=== PATIENT | female | born 1965 | race Caucasian/White ===

== ENCOUNTER 2017-06-30 17:38 | Inpatient (IN) | payer OTHER ==
[~2017-06-30] VITALS: Ht 157.5 cm; Wt 67.6 kg
[~2017-06-30 17:38] MED LIST: ATI1 PO; CLONIDINE0.1 MG PO; DIL2 PO; DRONABINOL PO; EXELON4.6 MG/24 TD; K10 PO; KEFLEX500 MG PO; KEPPRA XR750 MG PO; LIO10 PO; LOV60I SC; MVI; OXYCONTIN PO; PHECLUD PO; TRE400 PO; XARELTO10 M1 PO
--- NOTE | 2017-06-30 17:50 | NUR ---
PT BIB [facility] FOR C/O CHRONIC LOWER BACK PAIN. PER REPORT PT PAIN BEGAN TO GET WORSE TODAY. PT REPORTS TAKING OXYCOTINE THIS AM AND 2 DILAUDID 2MG AT NOON WIHT NO RELIEF OF PAIN. [facility] STATES PT WAS IN BED UNABLE TO MOVE UPON THEIR ARRIVAL. PT UPON ARRIVAL TO ED IS IN RIGHT LYING POSITION, STATES HER PAIN IS 10/10 AND THIS PAIN FEELS WORSE THAN NORMAL. PT PLACED ON MONITOR, CALL LIGHT WITHIN REACH AWAITING MSE.
--- NOTE | 2017-06-30 17:58 | NUR ---
DR. RABAGO AT BEDSIDE.
--- NOTE | 2017-06-30 18:26 | NUR ---
PT TO CT VIA [facility]
[2017-06-30 18:48] LABS: BASOPHIL % 0.5 % (0-2); CALCIUM 8.7 mg/dL (8.5-10.1); CARBON DIOXIDE 23.3 mmol/L (21-32); CHLORIDE SERUM 110 mmol/L (98-107); CREATININE SERUM 0.9 mg/dL (0.6-1.0); GFR1 > 60 mL/min; GLUCOSE SERUM 85 mg/dL (74-106); PLATELET COUNT 194 x10^3mcL (130-400); POTASSIUM SERUM 3.8 mmol/L (3.5-5.1); RED CELL DISTRIBUTION WIDTH 13.6 % (11.5-14.5); SODIUM SERUM 147 mmol/L (136-145)
[2017-06-30 18:53] LABS: ALBUMIN 3.3 g/dL (3.4-5.0); ALKALINE PHOSPHATASE 102 U/L (46-116); ALT/SGPT 33 U/L (14-59); AST/SGOT 23 U/L (15-37); BILIRUBIN TOTAL 0.28 mg/dL (0.20-1.00)
--- NOTE | 2017-06-30 19:23 | NUR ---
REPORT GIVEN TO RODNEY MAGUIRE TO ASSUME CARE OF PT.
--- NOTE | 2017-06-30 20:23 | NUR ---
PT RESTING ON RT SIDE AFTER F/C INSERTION.
[2017-06-30 20:33] LABS: UA SPECIFIC GRAVITY <=1.005 (1.005-1.035); microscopic required? YES; urine erythrocyte TRACE (NEGATIVE)
[2017-06-30] MEDS ORDERED: LOV40I SQ (20:36)
--- NOTE | 2017-06-30 20:50 | NUR ---
REPORT GIVEN TO LAUREL MAGUIRE.
[2017-06-30 21:09] LABS: AMPHETAMINE QUAL UR NONE DETECTED (NEG <=1000)
[2017-06-30 21:18] LABS: T3 TOTAL 1.54 ng/mL
[2017-06-30 21:25] LABS: FREE T4 0.87 ng/dL (0.76-1.46); FREE THYROXINE INDEX 2.1 ug/dL (1.4-4.5); T4(THYROXINE) 6.3 ug/dL (4.7-13.3)
[2017-06-30 21:34] VITALS: BP 113/47
--- NOTE | 2017-06-30 21:43 | NUR ---
AAOX4, SPEECH CLEAR. DENIES DIZZINES AND H/A, C/O BACK PAIN, WORSENED WITH MOVEMENT. ON RA, NO SOB NOTED. UNABLE TO AMBULATE AT THIS TIME PER PATIENT. NORMALLY AMBULATORY, ATTACHED TELE 19. NSR. IV SITE WNL. ORIENTED TO ROOM AND SURROUNDINGS. CALL LIGHT WITHIN REACH, PROVIDED REPORT TO LAUREL MAGUIRE FOR CONTINUITY OF CARE.
--- NOTE | 2017-06-30 21:52 | NUR ---
AT BEDSIDE DOING ASSESSMENT. PT. GIVEN NIGHT DOSE OF OXYCONTIN. PAIN LEVEL PER PT. 15 AT THIS TIME.
[2017-06-30 21:59] LABS: MAGNESIUM 1.9 mg/dL (1.8-2.4); PHOSPHOROUS 3.5 mg/dL (2.5-4.9)
--- NOTE | 2017-06-30 22:48 | NUR ---
PT. STATING THAT SHE IS STILL HAVING BACK PAIN AND SPASMS. STATED THAT SHE NEEDS SOMETHING IV LIKE DILAUDID TO TAKE THE EDGE OFF. STATED THAT SHE ALREADY TOOK DILAUDID PO AT HOME AND IT DID NOT WORK. ONLY PO DILAUDID AVAILABLE AT THIS TIME. PT. CONCERNS ADDRESSED TO DR. HUTCHINSON. DOCTOR TO SPEAK TO PT. AT THIS TIME.
--- NOTE | 2017-06-30 23:37 | NUR ---
PT. ALSO GIVEN ATIVAN 2MG IVP. PT. STATED THAT SHE IS STARTING FEEL MORE COMFORTABLE AND IS ALREADY FEELING LIKE SHE'S FALLING ASLEEP. WILL CONTINUE TO MONITOR. PT.
--- NOTE | 2017-07-01 00:12 | NUR ---
PT. SLEEPING AT THIS TIME. EYES CLOSED, SNORING CAN BE HEARD. CALL LIGHT REMAINS WITHIN REACH.
--- NOTE | 2017-07-01 03:52 | NUR ---
PT. REMAINS ASLEEP, NSR ON MONITOR. IVF INFUSING WELL. CALL LIGHT REMAINS WITHIN REACH.
--- NOTE | 2017-07-01 05:14 | NUR ---
PT. GIVEN HEATING PAD FOR LOWER BACK PAIN
[2017-07-01 05:42] VITALS: BP 103/64
--- NOTE | 2017-07-01 06:00 | NUR ---
TRAIN CREW MEMBER AND ULTRASOUNDS TECH, BOTH, UNABALE TO DO STUDIES THAT WERE ORDERED. PT. STATED THAT SHE WAS TOO UNCOMFORTABLE AND HAD TOO MUCH PAIN TO HAVE TEST DONE. CXR AND LLE VEOUS ULTRA SOUND NOT DONE. DR. HUTCHINSON MADE AWARE. PT. RECEIVED PRN DILAUDID FOR PAIN. BLOOD PRESSURE 103/64. HR 66. PT. REMAINS ON 2L/NC. F/C DRAINING WELL TO GRAVITY. CALL LIGHT WITHIN REACH.
--- NOTE | 2017-07-01 06:19 | NUR ---
PT. STILL C/O LOWER BACK PAIN. PATIENT OFFERED ATIVAN PO OR FLEXERIL PO. PT. WANTS TO KNOW WHY SHE COULD NOT GET ATIVAN IV. PT. INFORMED THAT HER BLOOD PRESSURE AND HR IS NEAR THE LOW SIDE, THE PO ATIVAN WOULD NOT AFFECT HER BLOOD PRESSURE AND HEART RATE FAST LIKE THE IV ATIVAN WOULD. PT. UPSET AND STATED THAT SHE HAS ALL THOSE "PILLS" AT HOME AND WHY IS SHE HERE. STATED THAT SHE ALREADY TALKED WITH THE DOCTOR WHO STATED TO HER THAT THERE WOULD BE MORE TEST THIS AM AND THAT WE WOULD MANAGE HER PAIN TO HELP HER BE MORE COMFORTABLE TO TAKE THE DIFFERENT TEST. FLEXERIL PO WAS ALSO OFFERED BUT PT. STATED THAT SHE WANTED SOMETHING"IV" FORM THAT WOULD HOT HER RIGHT AWAY. PT. DID RECEIVE PO DILAUDID LESS THAN AN HOUR EALIER. PT. RELUCTANT TO TAKE FLEXERIL OR ATIVAN PO NOW BECAUSE SHE WANTS TO BE ABLE TO RECEIVED IV ATIVAN NOW. PT. ENCOURGAED MORE TO TAKE EITHER MEDICATION, SINCE THE PO DILAUDID WAS STILL WORKING INHER SYSTEM FOR DUAL EFFECT, BUT SHE IS HESISTANT. I TOLD HER THAT I WOULD PAGE THE RESIDENT. AWAITING CALL BACK FROM DR. HUTCHINSON. CHARGE NURSE MADE AWARE OF SITUATION.
[2017-07-01 06:43] LABS: PLATELET COUNT 184 x10^3mcL (130-400); RED CELL DISTRIBUTION WIDTH 12.7 % (11.5-14.5)
[2017-07-01 06:44] LABS: CALCIUM 8.4 mg/dL (8.5-10.1); CHLORIDE SERUM 112 mmol/L (98-107); CREATININE SERUM 0.9 mg/dL (0.6-1.0); GFR1 > 60 mL/min; GLUCOSE SERUM 92 mg/dL (74-106); MAGNESIUM 1.8 mg/dL (1.8-2.4); POTASSIUM SERUM 4.1 mmol/L (3.5-5.1); SODIUM SERUM 147 mmol/L (136-145)
[2017-07-01 06:46] LABS: BASOPHIL % 4.4 % (0-2)
--- NOTE | 2017-07-01 06:49 | NUR ---
BLOOD PRESSURE CHECKED, 95/50, HR 62. DR. HUTCHINSON RETURNED PAGE. HE WAS MADE AWARE OF PT.'S REQUEST FOR IV ATIVAN. WILL ENDORSE TO INCOMING NURSE.
--- NOTE | 2017-07-01 07:07 | NUR ---
DR. HUTCHINSON WAS ABLE TO SPEAK WITH PT. PT. AGREED TO TAKING THE FLEXERIL PO. MEDICATION WAS GIVEN. WILL ENDORSE TO INCOMING NURSE.
--- NOTE | 2017-07-01 07:40 | NUR ---
RC'D PT RESTING IN BED, PT REPORTS LOWER BACK PAIN 8/10. LOW BP, MD AWARE. WILL MEDICATE WHEN BP INCREASES AND STABILIZES. PT VERBALIZES UNDERSTANDING OF UNABLE TO GIVE PAIN MEDS WITH BP LOW. PT A/A/O/X4, SPEECH CLEAR AND APPROPRIATE. ON TELE 19 WITH NSR. DENIES CHEST PAIN/PRESSURE. PALP PULSES, NO EDEMA NOTED. PT REPORTS "LEFT LEG BLOOD CLOT AND DR AWARE". LEFT LEG VENOUS US SCHEDULED. RESPIRATIONS EQUAL AND UNLABORED BILAT. LUNGS CTA. DENIES SOB. TORREZ PRESENT, URINE YELLOW. NO FOUL SMELL NOTED. ACTIVE BSX4. ABDOMEN SOFT AND NONTENDER. DENIES N/V. GENERALIZED WEAKNESS. LOWER BACK PAIN 8/. PER REPORT 3RD DISC BULGE. SKIN W/D/I. RAC IV, WNL. IV RUNNING NS AT 100MLS/HR. PT CALM AND COOPERATIVE. EDUCATE ON USING CALL LIGHT WHEN NEEDING ASSISTANCE. CALL LIGHT IN REACH. BED IN LOW POSITION. WILL CONTINUE TO MONITOR.
[2017-07-01 08:54] VITALS: BP 108/63
--- NOTE | 2017-07-01 10:35 | NUR ---
PT COMPLAINING OF PAIN 10/10 LOWER BACK PAIN. WILL MEDICATE WITH DILAUDID IVP PER MD ORDERS. WILL CONTINUE TO MONITOR.
--- NOTE | 2017-07-01 15:25 | NUR ---
PT COMPLAINING OF PAIN 8/10 LOWER BACK PAIN. WILL MEDICATE WITH DILAUDID PER MD ORDERS. WILL CONTINUE TO MONITOR.
[2017-07-01 17:05] VITALS: BP 109/69
--- NOTE | 2017-07-01 18:00 | NUR ---
PT RESTING IN BED WITH FAMILY PRESENT AT BEDSIDE. ON TELE 19 WITH NSR, DENIES CHEST PRESSURE/PAIN. RESPIRATIONS EQUAL AND UNLABORED. DENIES SOB. K PAD PRESENT ON BACK TO ALLEVIATE LOWER BACK PAIN. RAC IV RUNNING NS 100MLS/HR, WNL. PT EDUCATED ON MEDICATION SIDE EFFECTS AND USING CALL LIGHT WHEN GETTING OUT OF BED. CALL LIGHT IN REACH. BED IN LOW POSITION.
--- NOTE | 2017-07-01 19:48 | NUR ---
PT. AWAKE, ALERT, ORIENTED X4, DENIES HEADACHE OR DIZZINESS. BREATH SOUNDS CLEAR THROUGHOUT LUNG MARTINEZ, RESP. EVEN, UNLABORED. NO SOB NOTED. ABD. SOFT AND FLAT, BOWEL SOUNDS ACTIVE. DENIES NAUSEA. PT. C/O LOWER BACK PAIN, 9/10 PAIN LEVEL. PT. STATED THAT PAIN INCREASES W/ MOVEMENT.PT. RECEIVED PRN DILAUDID FROM DAY NURSE. BP 164/82, BHP648. FAMILY AT BEDSIDE. WILL CONTINUE TO MONITOR. CALL LIGHT REACH.
[2017-07-01 21:45] VITALS: BP 111/64
--- NOTE | 2017-07-01 22:19 | NUR ---
PT. REQUESTING PAIN MEDICATION, DILAUDID, IV. PRN MEDICATION GIVEN ORDERED. BLOOD PRESSURE 121/74, HR 61.
--- NOTE | 2017-07-02 01:34 | NUR ---
PT. STATED THAT SHE AWAKENED TO LOWER BACK SPASMS. 9/10 PAIN. BLLOD PRESSURE 107/65. PRN DILAUDID IVP GIVEN. TELE MONITORED REMOVED PER DOCTORS ORDER. PT. NOW MED SURGE PT. CALL LIGHT REMAINS WITHIN REACH.
--- NOTE | 2017-07-02 05:26 | NUR ---
PT. CURSING OBSCENITY AND UPSET. PT. REQUESTED PAIN MEDICATION FOR LOWER BACK PAIN. V.S WERE OBTAINED BY VETERINARY PRACTICE MANAGER. MEDICATION WERE DRWN AND GIVEN IN TMELY MANNER, LESS THAN 20 MINUTES AFTER INITIAL CALL. PT.'S BLOOD WAS BEING DRAWN BY LAB AT THE TIME. AFTER MEDICATION WAS GIVEN, PT. REQUESTED ORANGE JUICE. I TOLD HER THAT I WILL BRING THE ORANGE JUICE IN A FEW, EITHER ME OR THE VETERINARY PRACTICE MANAGER. PT. ASKED IF A FEW MINUTES MENT A FEW HRS. I TOLD HER NO. GIVE US A FEW AND SOMEONE WILL GET HER SOME JUICE, EVEN THE BAND SHOVER, WHOEVER IS FREE AND AVAILABLE. THIS APPEARED TO TRIGGER SO KIND OF EMOTIONAL STATE FOR THE PT CAUSE SHE STARTED ACCUSING ME OF TAKING 35-45 MINUTES TO BRING HER PAIN MEDICATION. I TRIED TO ADDRESS HER CONCERNS AT THE TIME BUT PT. STARTED CURSING AT ME AND TWISTING MY WORDS. I OFFERED TO GET MY CHARGE NURSE TO SPEAK WITH HER. SHE KEPT MUMBLING WORDS AT TIMES, UNDER HER BREATH. I TOLD HER THE CHARGE NURSE WOULD SPEAK WITH HER TO NOT ESCALATE THE SITUATION ANYMORE FOR HER.
[2017-07-02 06:03] LABS: BASOPHIL % 0.3 % (0-2); PLATELET COUNT 170 x10^3mcL (130-400); RED CELL DISTRIBUTION WIDTH 13.2 % (11.5-14.5)
[2017-07-02 06:21] VITALS: BP 100/64
[2017-07-02 06:22] LABS: CALCIUM 8.4 mg/dL (8.5-10.1); CHLORIDE SERUM 110 mmol/L (98-107); CREATININE SERUM 0.9 mg/dL (0.6-1.0); GFR1 > 60 mL/min; GLUCOSE SERUM 114 mg/dL (74-106); POTASSIUM SERUM 4.2 mmol/L (3.5-5.1); SODIUM SERUM 144 mmol/L (136-145)
--- NOTE | 2017-07-02 06:24 | NUR ---
CHARGE NURSE WAS SPOKE WITH PT. ADDRESSED CONCERNS. PT. CARE ENDORSED OVER TO CHARGE NURSE AT THIS TIME.
--- NOTE | 2017-07-02 07:39 | NUR ---
PT IS A+OX4, COMPLAINING OF SEVERE MUSCLE SPASMS, DENIES NAUSEA, SOB, AND HEADACHE, NO RESPIRATORY DISTRESS NOTED, PULSES MODERATE AND EQUAL [place], NO EDEMA PRESENT, LUNG SOUNDS CLEAR, TOELRATING ROOM AIR, BOWEL SOUNDS ACTIVE, TORREZ PRESENT, K PAD PRESENT, GENREALIZED WEAKNESS, SKIN INTACT, IV IN RAC WITH NS @ 100 ML/HR, WBC 12.2, RBC 3.74, HGB 11.4, HCT 35, CH 110, CA 8.4.
--- NOTE | 2017-07-02 08:21 | NUR ---
PT COMPLAINING OF SEVERE PAIN, DILAUDID GIVEN, PT REFUSED TRENTOL.
[2017-07-02 08:59] VITALS: BP 128/78
--- NOTE | 2017-07-02 09:42 | NUR ---
PT RESTING IN BED, STATES PAIN HAS SLIGHTLY IMPROVED, NO RESPIRATORY DISTRESS NOTED.
--- NOTE | 2017-07-02 10:35 | NUR ---
PT RESTING IN BED, NO RESPIRATORY DISTRESS NOTED, COMPLAINING OF PAIN, EDUCATED ON PRN MED SCHEDULE.
--- NOTE | 2017-07-02 11:10 | NUR ---
PT COMPLAINING OF SEVERE LOWER BACK PAIN AND MUSCLE SPASMS, DILAUDID GIVEN.
--- NOTE | 2017-07-02 12:37 | NUR ---
PHYSICAL THERAPY IN THE ROOM TO WORK WITH PT.
--- NOTE | 2017-07-02 12:38 | NUR ---
PT WORKING WITH PHYSICAL THERAPY, NO RESPIRATORY DISTRESS NOTED, COMPLAINING OF MODERATE BACK PAIN.
--- NOTE | 2017-07-02 13:13 | NUR ---
PER PHYSICAL THERAPY, PT ABLE TO STAND AND TAKE A COUPLE STEPS, BUT WAS TEARFUL AND COMPLAINED OF SEVERE PAIN THE ENTIRE TIME. PT EDUCATED IN PRN MED SCHEDULE. NO RESPIRATORY DISTRESS NOTED.
[2017-07-02 13:57] VITALS: BP 116/71
--- NOTE | 2017-07-02 14:26 | NUR ---
PT COMPLAINING OF SEVERE BACK PAIN AND MUSCLE SPASMS, DILAUDID GIVEN, NO RESPIRATORY DISTRESS NOTED.
--- NOTE | 2017-07-02 16:04 | NUR ---
PT RESTING IN BED, NO RESPIRATORY DISTRESS NOTED, COMPLAINING OF MODERATE PAIN, EDUCATED ON PRN MED SCHEDULE.
--- NOTE | 2017-07-02 17:01 | NUR ---
PHYSICAL THERAPY DAILY NOTES CO-SIGN All documentation done by the Bit Setter for 07/02/17 has been reviewed. I agree with the documentation. Reviewed/Co-Signed by: Luisa Lieberman PT Documentation Done by:KEATON MERRITT SOCIAL WORK MSW POC REVIEWED W/ SOCIAL WORK MSW; EMPHASIS ON PROPER BODY MECH, LOGROLL TECH, SAFE MOBILITY, BREATHING & RELAXATION TECH; ABD BINDER & OHT IN PLACE; Pt EMOTIONAL DUE TO PAIN.
--- NOTE | 2017-07-02 17:18 | NUR ---
PT RESTING IN BED, NO RESPIRATORY DISTRESS NOTED, COMPLAINING OF SEVERE BACK PAIN AND MUSCLE SPASMS, DILAUDID GIVEN.
--- NOTE | 2017-07-02 17:59 | NUR ---
ASSISTED PT WITH BED BATH, TORREZ CARE, CHANGE OF LINENS.
--- NOTE | 2017-07-02 18:15 | NUR ---
PROFESSOR OF ASTRONOMY BARGED INTO PATIENT ROOM SHOUTING AND YELLING AT PATIENT AND FAMILY. PROFESSOR OF ASTRONOMY HOSTILE AND ANGRY. NURSE ESCORTED PROFESSOR OF ASTRONOMY OUT OF ROOM. PT AND FAMILY CLEARLY FRIGHTENED AND UPSET. PLEASE SEE INCIDENT REPORT FOR MORE INFO. TURRET PRESS OPERATOR AND CHARGE NURSE NOTIFIED.
--- NOTE | 2017-07-02 18:45 | NUR ---
PT RESTING IN BED, NO RESPIRATORY DISTRESS NOTED, COMPLAINING OF BACK PAIN, DENIES SOB, HEADACHE, AND NAUSEA. FAMILY AT BEDSIDE.
--- NOTE | 2017-07-02 20:25 | NUR ---
RECEIVED PT FROM PREVIOUS SHIFT. PT A/OX4. C/O PAIN 07/01. DILAUDID PROVIDED PRN PER EMAR. IV PATENT AND INFUSING WELL WITH NO S/S OF INFILTRATION. FAMILY AT BEDSIDE. CALL LIGHT WITHIN REACH, BED IN LOW POSITION. WILL CONTINUE TO MONITOR.
[2017-07-02 22:04] VITALS: BP 118/60
--- NOTE | 2017-07-02 22:05 | NUR ---
NEW IV PLACED TO R HAND BY PREET MAGUIRE. PATENT AND INFUSING WELL. WILL CONTINUE TO MONITOR.
--- NOTE | 2017-07-03 00:15 | NUR ---
PT RESTING IN NO ACUTE DISTRESS. RR EVEN AND UNLABORED. IV PATENT AND INFUSING WELL WITH NO S/S OF INFILTRATION. CALL LIGHT WITHIN REACH, BED IN LOW POSITION. WILL CONTINUE TO MONITOR.
[2017-07-03 06:01] VITALS: BP 124/62
[2017-07-03 06:32] LABS: BASOPHIL % 0.1 % (0-2); PLATELET COUNT 161 x10^3mcL (130-400); RED CELL DISTRIBUTION WIDTH 13.2 % (11.5-14.5)
[2017-07-03 07:16] LABS: CALCIUM 8.3 mg/dL (8.5-10.1); CARBON DIOXIDE 22.3 mmol/L (21-32); CHLORIDE SERUM 111 mmol/L (98-107); CREATININE SERUM 0.9 mg/dL (0.6-1.0); GFR1 > 60 mL/min; GLUCOSE SERUM 89 mg/dL (74-106); MAGNESIUM 1.7 mg/dL (1.8-2.4); PHOSPHOROUS 3.8 mg/dL (2.5-4.9); POTASSIUM SERUM 4.3 mmol/L (3.5-5.1); SODIUM SERUM 145 mmol/L (136-145)
--- NOTE | 2017-07-03 07:42 | NUR ---
PT IS A+OX4, COMPLAINING OF SEVERE BACK PAIN AND MUSCLE SPASMS, PULSES MODERATE AND EQUAL, NO EDEMA PRESENT, LUNG SOUNDS CLEAR, TOLERATING ROOM AIR, BOWEL SOUNDS ACTIVE, TORREZ PRESENT DRAINING CLEAR YELLOW URINE, GENERALIZED WEKANESS, HEAT PAD IN PLACE, SKIN INTACT, IV IN L WRIST WITH NS @ 100 ML/HR, SITE WNL, WBC 3.6, HGB 11, HCT 34, CL 111, CA 8.3, NA 1.7.
[2017-07-03 09:23] VITALS: BP 112/72
--- NOTE | 2017-07-03 09:51 | NUR ---
PT UPSET WITH DR SY, REQUESTING TO SEE DIFFERENT DR. DR MARIE SPOKE WITH PT AND FAMILY FOR OVER AN HOUR. PT EMOTIONAL FROM TREATMENT BY HOSPITAL STAFF. PT DIASAGREES WITH DISCHARGE. DR SLATER STATES PT WILL STAY TODAY TO RECEIVE PHYSICAL THERAPY AND CONT MONITORING PT CONDITION.
--- NOTE | 2017-07-03 11:16 | NUR ---
PT COMPLAINING OF SEVERE BACK PAIN AND SEVERE MUSCLE SPASMS, DILUDID GIVEN.
--- NOTE | 2017-07-03 12:46 | NUR ---
PT ABLE TO SIT AT THE EDGE OF BED WITH PHYSICAL THERAPY, BUT REQUESTED THEY COME BACK LATER BECAUSE OF HER PAIN. NO RESPIRATORY DISTRESS NOTED.
--- NOTE | 2017-07-03 13:42 | NUR ---
PT RESTING IN BED, NO RESPIRATORY DISTRESS NOTED, COMPLAINING OF SEVERE BACK PAIN AND MUSCLE SPASMS, EDUCATED ON PRN MED SCHEDULE.
--- NOTE | 2017-07-03 14:10 | NUR ---
PT GIVEN DILAUDID 2 MG FOR RELIEF OF SEVERE BACK PAIN AND MUSCLE SPASMS IN ORDER TO PARTICIPATE IN PHYSICAL THERAPY. NO RESPIRATORY DISTRESS NOTED. PHYSICAL THERAPY IN ROOM TO WORK WITH PT.
--- NOTE | 2017-07-03 15:10 | NUR ---
PER PHYSICAL THERAPY, PT WALKED APPROX 15 FEET BUT WAS IN PAIN. PT RESTING IN BED, NO RESPIRATORY DISTRESS NOTED, COMPLAINING OF PAIN BUT STATES CAN WAIT UNTIL NEXT PRN MED.
--- NOTE | 2017-07-03 15:32 | NUR ---
PHYSICAL THERAPY DAILY NOTES CO-SIGN All documentation done by the Nuclear Power Reactor Operator for 07/03/17 has been reviewed. I agree with the documentation. I CONCUR W/MAP MAKER NOTE; Pt SHOWED PROGRESS WITH POC, WITH INCREASED PARTICIPATION WHEN MEDICATED; CONT PER TX PLAN Reviewed/Co-Signed by: Lupe Luna V PT Documentation Done by: MILY PIERCE PTA
--- NOTE | 2017-07-03 16:34 | NUR ---
PT RESTING IN BED, NO RESPIRATORY DISTRESS NOTED, COMPLAINING OF SEVERE BACK AND MUSCLE SPASMS, STATES SHE WILL WAIT FOR PRN PAIN MED.
--- NOTE | 2017-07-03 17:30 | NUR ---
PT COMPLAINING OF SEVERE BACK PAIN AND MUSCLE SPASMS, DILAUDID IV GIVEN. NO RESPIRATORY DISTRESS NOTED, FAMILY AT BEDSIDE.
[2017-07-03 17:41] VITALS: BP 121/83
--- NOTE | 2017-07-03 19:39 | NUR ---
RECEIVED PT FROM PREVIOUS SHIFT. PT A/OX4. C/O 05/01 PAIN TO BACK. WILL MEDICATE PRN PER EMAR. DENIES SOB ON RA. IV PATENT AND INFUSING WELL WITH NO S/F OF INFILTRATION. CALL LIGHT WITHIN REACH, BED IN LOW POSITION. FAMILY AT BEDSIDE. WILL CONTINUE TO MONITOR.
--- NOTE | 2017-07-03 20:32 | NUR ---
ADMINISTERED DILAUDID PRN FOR PAIN IVP. INFUSED WELL. NO S/S OF INFILTRATION. WILL CONTINUE TO MONITOR.
[2017-07-03 21:26] VITALS: BP 121/79
--- NOTE | 2017-07-04 01:19 | NUR ---
PT RESTING AT THIS TIME IN NO ACUTE DISTRESS. RR EVEN AND UNLABORED. IV PATENT AND INFUSING WELL. CALL LIGHT WITHIN REACH, BED IN LOW POSITION. WILL CONTINUE TO MONITOR.
--- NOTE | 2017-07-04 04:17 | NUR ---
PT REQUESTING REMOVAL OF F/C. DR HUTCHINSON MADE AWARE AND ORDER RECEIVED FOR F/C REMOVAL. PT REQUESTING REMOVAL TO BE DONE BY RECREATION LEADER. RICHARD MAGURIECRIME INVESTIGATOR SPECIAL AGENT REMOVED F/C AT THIS TIME WITH NO COMPLICATIONS. PT REMOVED IV FROM L WRIST. REFUSING IV ACCESS. DR SENA. CALL LIGHT WITHIN REACH, BED IN LOW POSITION. WILL CONTINUE TO MONITOR.
[2017-07-04 05:38] VITALS: BP 114/63
[2017-07-04 06:30] LABS: CALCIUM 8.8 mg/dL (8.5-10.1); CARBON DIOXIDE 25.1 mmol/L (21-32); CHLORIDE SERUM 108 mmol/L (98-107); CREATININE SERUM 0.9 mg/dL (0.6-1.0); GFR1 > 60 mL/min; GLUCOSE SERUM 89 mg/dL (74-106); MAGNESIUM 1.8 mg/dL (1.8-2.4); PHOSPHOROUS 4.2 mg/dL (2.5-4.9); POTASSIUM SERUM 4.2 mmol/L (3.5-5.1); SODIUM SERUM 142 mmol/L (136-145)
[2017-07-04 07:22] LABS: BASOPHIL % 0.4 % (0-2); PLATELET COUNT 178 x10^3mcL (130-400); RED CELL DISTRIBUTION WIDTH 13.1 % (11.5-14.5)
--- NOTE | 2017-07-04 07:33 | NUR ---
RECEIVED THIS AM AWAKE, ALERT AND ORIENTED. IN NO ACUTE RESP. DISTRESS. PT APPEARS VERY UPSET.SHE HAS CHANGED TO HER STREES CLOTHES, STATED "THEY TOOK AWAY ALL IV PAIN MEDS AND NOBODY CARES THAT I AM IN PAIN". SHE PULLED OUT HER IV STATING THAT THERE IS NO NEED FOR IT SINCE SHE WILL NOT GET ANY MORE IV MEDS. PT STATED SHE HAS BEEN RECORDING HOW SHE HAS BEEN TREATED BY STAFF AND WILL REPORT TO BBB WHEN SHE LEAVES THE HOSPITAL. PT WANT TO LEAVE BUT REFUSED TO SIGN AMA FORM.CHARGE NURSE AWARE. CALL LIGHT WITHIN REACH. WILL CONTINUE WITH PLAN OF CARE.
--- NOTE | 2017-07-04 08:00 | NUR ---
PT UP TO THE BATHROOM WASHING UP WITH NO DISTRESS. STATED SHE DOES NOT NEED OUR HELP.INSTRUCTED TO CALL IF NEED ASSISTANCE.
[2017-07-04 09:03] VITALS: BP 103/83
--- NOTE | 2017-07-04 09:46 | NUR ---
AM ROUNDS DONE BY DR. CIFUENTES AND MEDICAL TEAM. DR. WOO TALK TO PT AND FATHER RE: PLAN OF CARE. PT STILL ASKING FOR IV PAIN MEDS BUT HAS NO IV ACCESS CURRENTLY. DR. WOO TO CHANGE ROBAXIN TO PO.
--- NOTE | 2017-07-04 16:00 | NUR ---
PT C/O BACK PAIN 08/01. MEDICATED WITH DILAUDID PO PER ORDER.
[2017-07-04 17:01] VITALS: BP 146/81
--- NOTE | 2017-07-04 18:38 | NUR ---
REMAINS IN NO DISTRESS. AWAKE AND ALERT. FAMILY AT BEDSIDE. NO C/O PAIN OR DISCOMFORT AT THIS TIME. VS REMAINS WNL. CALL LIGHT WITHIN REACH. WILL BE ENDORSED TO INCOMING SHIFT.
--- NOTE | 2017-07-04 19:00 | NUR ---
AAOX4. SON AT BEDSIDE. MED SURG. RADIAL AND PEDAL PULSES PALAPBLE, NO EDEMA. LUNGS CLEAR AND UNLABORED, ON RA. BOWEL SOUND ACTIVE X 4 QUADRANTS. VOIDS WITHOUT DIFFICULTY. SKIN INTACT. DENIES PAIN AT THIS TIME, STATES WAS RECENTLY MEDICATED BY DAY SHIFT RN. UNSTEADY GAIT R/T CHRONIC BACK PAIN AND MUSCLE SPASMS. NO IV ACCESS, DRMoses SENA. BED IN LOW POSITION, CALL LIGHT IN REACH. INSTRUCTED TO CALL FOR ASSISTANCE.
[2017-07-04 21:18] VITALS: BP 123/76
--- NOTE | 2017-07-05 01:21 | NUR ---
RESTING WITH EYES CLOSED. AWAKENS EASILY TO VERBAL STIMULI. BREATHING EVEN AND UNLABORED, NO ACUTE DISTRESS NOTED. WILL CONTINUE TO MONITOR.
[2017-07-05 05:34] VITALS: BP 102/62
[2017-07-05 05:58] LABS: BASOPHIL % 0.4 % (0-2); PLATELET COUNT 197 x10^3mcL (130-400); RED CELL DISTRIBUTION WIDTH 13.4 % (11.5-14.5)
--- NOTE | 2017-07-05 06:14 | NUR ---
AAOX4. RR EVEN AND UNLABORED. NO ACUTE DISTRESS NOTED. NO ACUTE CHANGES DURING SHIFT. WILL ENDORSE TO ONCOMING RN.
[2017-07-05 06:38] LABS: CARBON DIOXIDE 26.7 mmol/L (21-32); CHLORIDE SERUM 108 mmol/L (98-107); GFR1 > 60 mL/min; GLUCOSE SERUM 92 mg/dL (74-106); MAGNESIUM 2.2 mg/dL (1.8-2.4); PHOSPHOROUS 4.4 mg/dL (2.5-4.9); POTASSIUM SERUM 4.8 mmol/L (3.5-5.1); SODIUM SERUM 142 mmol/L (136-145)
[2017-07-05] MEDS ORDERED: MAC100 PO (08:03)
[2017-07-05] MEDS ORDERED: BD LACTINEX1.4 MG PO (08:04)
[2017-07-05 08:51] VITALS: BP 109/61
--- NOTE | 2017-07-05 09:05 | NUR ---
AT 0715 - RECEIVED PATIENT FROM NIGHT NURSE. PATIENT AWAKE, ALERT AND ORIENTED. AMBULATED BACK FROM BATHROOM. REPORTS HAVING BRIGHT BLOOD IN URINE AND BURNING ON URINATION. NOTED PINK TINGE OF URINE AND LIGHT BLOOD STAIN ON TISSUE PAPER. AT 0745 - PATIENT SAT IN CHAIR FOR BREAKFAST. C/O BACK PAIN. AT 0755 - SEEN BY DR JENSEN DURING MORNING ROUNDS. MEDICAL TEAM DOCTORS, DEVIN DAMON AND MYSELF PRIMARY NURSE ALSO PRESENT. DR JENSEN NOTED PATIENT'S HEMATURIA AND SPOKE WITH PATIENT ABOUT PLAN OF CARE. TO COMMENCE PYRIDIUM AND DC HOME OF MUSCLE RELAXANTS AND PAIN MEDICATIONS. PATIENT VERBALIZED UNDERSTANDING.
--- NOTE | 2017-07-05 09:15 | NUR ---
PATIENT COMMENCED ON PYRIDUM. FIST DOSE ADMINIZTERED. ALSO GIVEN OXYCODONE FOR BACK PAIN PER EMAR.
[2017-07-05] MEDS ORDERED: ROB750 PO (13:59)
--- NOTE | 2017-07-05 14:45 | NUR ---
PATIENT HAS BEEN AMBULATING IN ROOM. HAS ALSO HAD PT. BACK PAIN APPEARS UNDER CONTROL WITH CURRENT MEDICATIONS.
--- NOTE | 2017-07-05 16:08 | NUR ---
PHYSICAL THERAPY DAILY NOTES CO-SIGN All documentation done by the Environmental Field Professional for 07/05/17 has been reviewed. I agree with the documentation. Reviewed/Co-Signed by: Mayra Gamble PT Documentation Done by: KEATON MERRITT SLIP FEEDER PT PROGRESSING STEADILY TOWARDS REHAB GOALS SET.
[2017-07-05 17:36] LABS: microscopic required? YES; urine erythrocyte 3+ (NEGATIVE)
[2017-07-05 18:02] VITALS: BP 112/76
--- NOTE | 2017-07-05 19:12 | NUR ---
AT 1700 - SEEN BY DR VIVEROS. NEW ORDERS RECEIVED. PATIENT WILL NOT BE DISCHARGED HOME TODAY. URINE COLLECTED AND TAKEN TO LAB FOR UA ORDERED. IV INITIATED IN L WRIST BY STUDENT NURSE UNDER NURSING CUT ROLL MACHINE OFFBEARER INSTRUCTION. BLADDER SCAN DONE POST-VOID ORDERED. 0 ML IN BLADDER. AT 1730 - IV INFUSION OF NS COMMENCED AT 75ML/HR. FIRST DOSE OF ROCEPHIN 2 G IN PROGRESS PER EMAR. AT 1900 - PATIENT HAVING GOOD PAIN CONTROL WITH CURRENT PAIN MEDS. VOIDING ORANGE URINE WITH NO VISIBLE HEMATUREA. WILL ENDORSE CARE TO NIGHT NURSE.
--- NOTE | 2017-07-05 19:51 | NUR ---
PT A/A/O X4. DENIES DIZZINESS AND HEADACHE. BREATH SOUNDS CLEAR. BREATHING EVEN AND UNLABORED ON ROOM AIR. DENIES CHEST PAIN AND PRESSURE. BOWEL SOUNDS ACTIVE. NO C/O N/V AND ABD PAIN. C/O BACK PAIN DENIES NEED FOR PAIN MEDICATION THUS FAR. C/O DISCOMFORT WHEN URINATING. IV INTACT ON THE LEFT WRIST INFUSING WITH NS AT 75 ML/HR. MADE PT COMFORTABLE. PLACED CALL LIGHT WITH IN REACH WILL CONTINUE TO MONITOR.
[2017-07-05 20:41] VITALS: BP 121/89
--- NOTE | 2017-07-06 00:24 | NUR ---
PT WATCHING TV. NO C/O PAIN THUS FAR. WILL CONTINUE TO MONITOR.
--- NOTE | 2017-07-06 02:41 | NUR ---
PT C/O PAIN. GAVE PT DILAUDID PO. PT TOLERATED IT WELL. WILL CONTINUE TO MONITOR.
[2017-07-06 05:36] VITALS: BP 96/55
--- NOTE | 2017-07-06 06:01 | NUR ---
PT QUIET AND RESTING. NO C/O BACK PAIN THUS FAR. IV INTACT AND INFUSING ORDERED. MADE PT COMFORTABLE. WILL ENDORSE TO THE AM NURSE ACCORDINGLY.
[2017-07-06 06:17] LABS: BASOPHIL % 0.4 % (0-2); PLATELET COUNT 191 x10^3mcL (130-400); RED CELL DISTRIBUTION WIDTH 13.2 % (11.5-14.5)
[2017-07-06 06:38] LABS: CALCIUM 8.6 mg/dL (8.5-10.1); CHLORIDE SERUM 106 mmol/L (98-107); GFR1 > 60 mL/min; GLUCOSE SERUM 98 mg/dL (74-106); MAGNESIUM 1.9 mg/dL (1.8-2.4); PHOSPHOROUS 4.2 mg/dL (2.5-4.9); POTASSIUM SERUM 4.4 mmol/L (3.5-5.1); SODIUM SERUM 141 mmol/L (136-145)
--- NOTE | 2017-07-06 07:50 | NUR ---
PT A/A/O/X4, SPEECH CLEAR AND APPROPRIATE. DENIES SOB OR CHEST PAIN. PALP PULSES, NO EDEMA NOTED. RESPIRATIONS EQUAL AND UNLABORED BILAT. LUNGS CTA. ON RA WITH 99%. ACTIVE BS. ABDOMEN SOFT AND NONTENDER. DENIES N/V. PT AMBULATORY WITH BRP. PT REPORTS HEMATURIA YESTERDAY EVENING, MD AWARE. LOWER BACK PAIN WITH MUSCLE SPASMS. SKIN W/D/I. LW IV RUNNING 75ML/HR, WNL. CALL LIGHT IN REACH. BED IN LOW POSITION. WILL CONTINUE TO MONITOR.
[2017-07-06 08:47] VITALS: BP 119/65
--- NOTE | 2017-07-06 10:00 | NUR ---
PT RESTING IN BED. NO APPARENT SIGNS OF DISTRESS. WILL CONTINUE TO MONITOR.
--- NOTE | 2017-07-06 13:15 | NUR ---
PT COMPLAINING OF 8/10 PAIN. MEDICATED WITH DILAUDID PO PER MD ORDER. WILL CONTINUE TO MONITOR.
[2017-07-06] MEDS ORDERED: LEVAQUIN750 MG PO (13:25)
--- NOTE | 2017-07-06 15:13 | NUR ---
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 Cervical cancer, no longer receiving treatment x7 years. PSHx: Pelvic lymphadenectomy, Left kidney resection Labs: BG 98, Alb 3.2L, Glob 3.7L, A1C 4.9, Meds: Colace, Dulcolax, Lactinex, Milk of Magnesia, NS IV, Zofran Diet: Regular PO Intake: (07/03) D: 50%, (07/04) D: 25%, (07/05) B: 20%, (07/06) B: 100% Ht: 62in Wt: 149lb (Admit wt discrepancy due to possible bed equipment) Weight history: (06/30) 140lb BMI: 27.3 kg/m2 (Overweight) IBW: 110lb %IBW: 135% Adj. Body Weight: 120lb UBW: 132-138lb (per pt) Age: 52 y/o F Food Allergies: No Skin: Intact. 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 Per shift reassessment note (07/05) pt complains of discomfort and blood in urine. internet designer visited pt who was having lunch and sitting in bed. Pt was interested in education about a healthy diet, stated appetite had returned and would take longer than usual to finish her meal. Problems with: N: No V: No D: No C: No Problems with: Chewing: No Swallowing: No Current Appetite: Good Recent wt change: +10lb (within a month) %wt change: 7% wt gain (pt has history of DVT on leg) Vitamin/Supplement use: No Diet at home: Regular Physical activity: Limited due to DVT Education: internet designer answered pt's questions about what a healthy diet is, organic foods, whole grains, and protein intake. Inside Sales Director commended pt for commitment to change diet and eat healthier, pt requested healthy diet guidelines and manager intern provided handout. Estimated Nutritional Needs Based on: Adjusted Body Weight 120lb, 54kg Energy: 1350-1620kcal/d (kcal/kg 25-30 for Maintenance) Protein: 43g/d (0.8 g/kg for Left kidney CKD and Maintenance) Fluid: 1350-1620ml/d (1 ml/peter) or per doctor Nutrition Diagnosis: No nutrition diagnosis at this time. Intervention: 1. Continue Regular diet as per doctor Monitor/ Evaluate: Goal: PO intake to meet at least 75% of estimated needs Monitor: PO intake, Labs, GI function, Urine output F/U in 7 days as Low risk (07/13)
--- NOTE | 2017-07-06 15:14 | NUR ---
1. Continue Regular diet as per doctor
[2017-07-06 15:38] VITALS: BP 119/65
--- NOTE | 2017-07-06 16:51 | NUR ---
PHYSICAL THERAPY DAILY NOTES CO-SIGN All documentation done by the Metal Ceiling Builder for 07/06/17 has been reviewed. I agree with the documentation. Reviewed/Co-Signed by: Luisa Lieberman PT Documentation Done by:MILY PIERCE CHIP MIXING MACHINE OPERATOR POC REVIEWED W/ CHIP MIXING MACHINE OPERATOR; PROGRESSING W/ FUNC MOB & GAIT ENDURANCE.
--- NOTE | 2017-07-06 17:00 | NUR ---
PT PROVIDED WITH DC HOME INSTRUCTIONS. GIVEN MEDICATION EDUCATION. MADE AWARE PRESCRIPTIONS HAEV BEEN SENT TO PT'S SELECTED PHARMACY. MADE AWARE OF FOLLOW UP APPT WITH PCP. INSTRUCTED ON IMPORTANCEOF COMPLETING ANTIBIOTIC TX ORDERED. MADE AWARE OF WORSENING SIGNS AND SYMPTOMS TO RETURN TO ED OR REPORT TO PCP. PT VERBALIZED UNDERSTANDING OF INSTRUCTIONS. TELE AND IV DC'D, CATHETER INTACT. PT TRANSPORTED VIA WC TO THE LOBBY WITH ALL PERSONAL BELONGINGS IN HAND ACCOMPANIED BY RN AND FAMILY FREE OF ANY APPARENT DISTRESS.
== END 2017-07-06 16:59 | disposition home or self-care (01) | DRG 551 ==
LOC: ED 17:38 → DU 19:39 → MU 07-02 01:38
PROVIDERS: Emergency Medicine; Family Medicine; ADMIT Family Medicine
DX: M51.86 Other intervertebral disc disorders, lumbar region (principal); N17.0 Acute kidney failure with tubular necrosis; E87.0 Hyperosmolality and hypernatremia; N39.0 Urinary tract infection, site not specified; E44.1 Mild protein-calorie malnutrition; G89.29 Other chronic pain; R31.9 Hematuria, unspecified; E87.8 Other disorders of electrolyte and fluid balance, not elsewhere classified; Z90.5 Acquired absence of kidney; Z92.3 Personal history of irradiation; Z68.23 Body mass index [BMI] 23.0-23.9, adult; Z86.711 Personal history of pulmonary embolism; Z79.891 Long term (current) use of opiate analgesic; Z85.41 Personal history of malignant neoplasm of cervix uteri; Z86.718 Personal history of other venous thrombosis and embolism; T50.8X5A Adverse effect of diagnostic agents, initial encounter; Y92.018 Other place in single-family (private) house as the place of occurrence of the external cause; Z92.21 Personal history of antineoplastic chemotherapy
CPT/HCPCS: 82962; 83880; 84439; 97110-GP; 97116-GP; 97530-GP; J0696; J1100; J1170; J2060; J2800; J3010; J3490; J7030; Q0092

== ENCOUNTER 2017-11-05 20:19 | Emergency (ER) | payer OTHER ==
[~2017-11-05] VITALS: Ht 167.6 cm; Wt 59.0 kg
[~2017-11-05 20:19] MED LIST changes: +BD LACTINEX1.4 MG PO; +LEVAQUIN750 MG PO; +LOV40I SQ; +MAC100 PO; +ROB750 PO
[2017-11-05 20:25] VITALS: Ht 167.6 cm; Wt 59.0 kg
[2017-11-05 21:18] LABS: BASOPHIL % 0.3 % (0-2); PLATELET COUNT 242 x10^3mcL (130-400); RED CELL DISTRIBUTION WIDTH 13.6 % (11.5-14.5)
[2017-11-05 21:24] LABS: CALCIUM 8.6 mg/dL (8.5-10.1); CARBON DIOXIDE 27.1 mmol/L (21-32); CHLORIDE SERUM 106 mmol/L (98-107); CREATININE SERUM 0.9 mg/dL (0.6-1.0); GFR1 > 60 mL/min; GLUCOSE SERUM 106 mg/dL (74-106); POTASSIUM SERUM 3.8 mmol/L (3.5-5.1); SODIUM SERUM 140 mmol/L (136-145)
[2017-11-05 21:29] LABS: ALKALINE PHOSPHATASE 103 U/L (46-116); ALT/SGPT 25 U/L (14-59); AST/SGOT 17 U/L (15-37); BILIRUBIN TOTAL 0.3 mg/dL (0.20-1.00); TOTAL PROTEIN, SERUM 7.2 g/dL (6.4-8.2)
[2017-11-05 21:30] LABS: ALBUMIN 3.3 g/dL (3.4-5.0)
[2017-11-05 22:15] VITALS: BP 103/64
== END 2017-11-05 23:23 | disposition home or self-care (01) ==
LOC: ED 20:19
PROVIDERS: Emergency Medicine
DX: S00.03XA Contusion of scalp, initial encounter (principal); R55 Syncope and collapse; Z88.8 Allergy status to other drugs, medicaments and biological substances; W18.30XA Fall on same level, unspecified, initial encounter; Y93.89 Activity, other specified; Y99.8 Other external cause status; Y92.89 Other specified places as the place of occurrence of the external cause
CPT/HCPCS: J1885; J7030; Q0092